=== PATIENT | female | born 1945 | race Caucasian/White ===

== ENCOUNTER → 2017-01-11 | Emergency (ER) | payer MEDICARE | END | disposition home or self-care (01) | LOC: D.ER 10:08 | DX: S22.32XA Fracture of one rib, left side, initial encounter for closed fracture (principal); W06.XXXA Fall from bed, initial encounter; Y93.89 Activity, other specified; Y92.013 Bedroom of single-family (private) house as the place of occurrence of the external cause; C50.919 Malignant neoplasm of unspecified site of unspecified female breast; E11.9 Type 2 diabetes mellitus without complications; I10 Essential (primary) hypertension ==

== ENCOUNTER → 2018-05-05 10:48 | Outpatient (CLI) | payer OTHER | END | disposition home or self-care (01) | LOC: D.MRI 10:48 | DX: M54.16 Radiculopathy, lumbar region (principal) ==

== ENCOUNTER → 2019-04-12 10:58 | Outpatient (CLI) | payer OTHER ==
[2019-04-12 11:31] LABS: ANION GAP 14.8 mmol/L (8-16); CALCIUM 9.4 mg/dL (8.5-10.1); CARBON DIOXIDE 25.2 mmol/L (21.0-32.0); CREATININE - SERUM 1.5 mg/dL (0.6-1.3)
== END | disposition home or self-care (01) ==
LOC: D.LAB 10:58
DX: I50.33 Acute on chronic diastolic (congestive) heart failure (principal); E87.1 Hypo-osmolality and hyponatremia; I34.0 Nonrheumatic mitral (valve) insufficiency